=== PATIENT | male | born 1990 | race Caucasian/White ===

== ENCOUNTER 2017-02-01 06:25 | Emergency (ER) | payer SELFPAY ==
[~2017-02-01] VITALS: Ht 172.7 cm; Wt 72.6 kg
[2017-02-01 06:31] VITALS: BP 139/87
--- NOTE | 2017-02-01 06:31 | NUR ---
Patient to bed 11.
--- NOTE | 2017-02-01 06:43 | NUR ---
26Y/M PT. PRESENTS TO ED WITH C/O DIZZY SPELLS WITH TROUBLE WITH RECALLING RECENT EVENTS X 1 YEAR. PT ALSO C/O LEFT SIDED WEAKNESS. DENIES MEDICAL HX, DENIES TRAUMA NOR INJURY. AAO X4, AMBULATORY WITH STEADY GAIT, GCS 15, BOTH PUPILS 3 MM PERRA. RESPIRATIONS ROOM AIR, EVEN AND UNLABORED. C/O LT. SIDE PAIN 12/28. VSS, ER MD MADE AWARE OF PT. STATUS.
--- NOTE | 2017-02-01 07:11 | NUR ---
Jorgito taken to CT via wheelchair.
[2017-02-01 07:16] LABS: BASOPHILS # (AUTO) 0.1 K/uL (0.00-0.22); BASOPHILS % (AUTO) 1.7 % (0.0-2.0); EOSINOPHILS # (AUTO) 0.1 K/uL (0-0.4); HEMATOCRIT 47.3 % (36-52); HEMOGLOBIN 15.7 g/dL (12.0-18.0); LYMPHOCYTES # (AUTO) 0.9 K/uL (2.0-11.5); LYMPHOCYTES % (AUTO) 13.6 % (20.5-51.1); MEAN CORPUSCULAR HEMOGLOBIN 30 pg (27-31); MEAN CORPUSCULAR HGB CONC 33 g/dL (33-37); MEAN CORPUSCULAR VOLUME 90 fL (80-94); MONOCYTES # (AUTO) 0.7 K/uL (0.8-1.0); MONOCYTES % (AUTO) 11.1 % (1.7-9.3); NEUTROPHILS # (AUTO) 4.8 K/uL (1.8-7.7); NEUTROPHILS % (AUTO) 72.6 % (42.2-75.2); PLATELET COUNT (AUTO) 226 K/uL (140-450); RED BLOOD CELL COUNT(AUTO) 5.23 MIL/uL (4.20-6.10); RED CELL DISTRIBUTION WIDTH 12.1 % (11.6-13.7); WHITE BLOOD COUNT (AUTO) 6.6 K/uL (4.8-10.8)
--- NOTE | 2017-02-01 07:24 | NUR ---
REPORT GIVEN TO CAMPOS BRAY. PT. RESTING IN BED, NO S/SX OF DISTRESS AT THIS TIME.
--- NOTE | 2017-02-01 07:24 | NUR ---
PT. BACK FROM CT
--- NOTE | 2017-02-01 07:25 | NUR ---
ASSUMED PATIENT CARE, CONCUR WITH PREVIOUS ASSESSMENTS.
[2017-02-01 07:26] LABS: APPEARANCE,URINE CLEAR (CLEAR); BILIRUBIN,URINE NEGATIVE (NEGATIVE); BLOOD, URINE NEGATIVE (NEGATIVE); COLOR,URINE YELLOW (YELLOW); LEUKOCYTE ESTERASE ,URINE NEGATIVE (NEGATIVE); NITRITE, URINE NEGATIVE (NEGATIVE); UGLUCOSE NEGATIVE (NEGATIVE)
[2017-02-01 07:30] LABS: BARBITURATE, URINE NEG. ng/ml (NEG <=200); BENZODIAZEPINE, URINE NEG. ng/mL (NEG <=200); CANNABINOID, URINE NEG. ng/mL (NEG <=50); COCAINE, URINE NEG. ng/mL (NEG <=300); OPIATE, URINE NEG. ng/mL (NEG <=2000); PHENCYCLIDINE SCREEN,URINE NEG. ng/mL (NEG <=25)
[2017-02-01 07:35] LABS: ALBUMIN 3.8 g/dL (3.4-5.0); ANION GAP 12.8 (8-16); ASPARTATE AMINOTRANSFERASE 17 U/L (15-37); CARBON DIOXIDE 26.3 mmol/L (21-32); CHLORIDE 107 mmol/L (98-107); CREATININE 0.9 mg/dL (0.7-1.3); GFR ARICAN-AMERICAN 131 mL/min (>90); GLUCOSE 109 mg/dL (74-106); POTASSIUM 4.1 mmol/L (3.5-5.1); SODIUM SERUM 142 mmol/L (136-145); TOTAL BILIRUBIN 0.6 mg/dL (0.0-1.0); UREA NITROGEN, BLOOD 10 mg/dL (7-18)
[2017-02-01 08:52] VITALS: BP 122/55
--- NOTE | 2017-02-01 08:53 | NUR ---
DC HOME WITH INSTRUCTIONS, UNDERSTOOD BY PATIENT WELL, VSWNL, NO DISTRESS. DC HOME AMBULATORY ACCOMPANIED BY FRIEND.
== END 2017-02-01 08:53 | disposition home or self-care (01) ==
LOC: MED 06:25
DX: R42 Dizziness and giddiness (principal); M54.2 Cervicalgia
CPT/HCPCS: 36415; 70450; 71010; 80053; 80305; 81003; 82550; 85025; 93005; 99285; G0482

== ENCOUNTER 2017-02-15 15:21 | Inpatient (IN) | payer MEDICAID ==
[~2017-02-15] VITALS: Ht 175.3 cm; Wt 95.3 kg
[2017-02-15 15:54] VITALS: BP 134/95
--- NOTE | 2017-02-15 16:03 | NUR ---
PATIENT PRESENTS TO ED WITH auditory/visual hallucination . PT STATES denies homicidal/suicidal ideations- . DENIES N/V/D; SKIN IS PINK/WARM/DRY; AAOX4 WITH EVEN AND STEADY GAIT; LUNGS CLEAR BL; HR EVEN AND REGULAR; PT DENIES ANY FEVER, CP, SOB, OR COUGH AT THIS TIME; PATIENT STATES PAIN OF 0/10 AT THIS TIME; VSS; PATIENT POSITIONED FOR COMFORT; HOB ELEVATED; BEDRAILS UP X2; BED DOWN. ER MD MADE AWARE OF PT STATUS.
--- NOTE | 2017-02-15 16:05 | NUR ---
DR. VILLATORO EVALUATING PT AT BEDSIDE.
[2017-02-15 16:32] LABS: BASOPHILS # (AUTO) 0.2 K/uL (0.00-0.22); BASOPHILS % (AUTO) 2.3 % (0.0-2.0); EOSINOPHILS # (AUTO) 0.2 K/uL (0-0.4); EOSINOPHILS % (AUTO) 1.6 % (0.0-4.0); HEMATOCRIT 45.6 % (36-52); HEMOGLOBIN 15.3 g/dL (12.0-18.0); LYMPHOCYTES # (AUTO) 1.7 K/uL (2.0-11.5); LYMPHOCYTES % (AUTO) 17.7 % (20.5-51.1); MEAN CORPUSCULAR HEMOGLOBIN 30 pg (27-31); MEAN CORPUSCULAR HGB CONC 34 g/dL (33-37); MEAN CORPUSCULAR VOLUME 90 fL (80-94); MONOCYTES # (AUTO) 0.6 K/uL (0.8-1.0); MONOCYTES % (AUTO) 6.1 % (1.7-9.3); NEUTROPHILS # (AUTO) 6.7 K/uL (1.8-7.7); NEUTROPHILS % (AUTO) 72.3 % (42.2-75.2); PLATELET COUNT (AUTO) 266 K/uL (140-450); RED BLOOD CELL COUNT(AUTO) 5.08 MIL/uL (4.20-6.10); RED CELL DISTRIBUTION WIDTH 12.4 % (11.6-13.7); WHITE BLOOD COUNT (AUTO) 9.4 K/uL (4.8-10.8)
[2017-02-15 16:41] LABS: APPEARANCE,URINE CLEAR (CLEAR); BILIRUBIN,URINE NEGATIVE (NEGATIVE); BLOOD, URINE NEGATIVE (NEGATIVE); COLOR,URINE YELLOW (YELLOW); LEUKOCYTE ESTERASE ,URINE NEGATIVE (NEGATIVE); NITRITE, URINE NEGATIVE (NEGATIVE); PH,URINE 5.5 (5.0-9.0); UGLUCOSE NEGATIVE (NEGATIVE)
[2017-02-15 16:43] LABS: BARBITURATE, URINE NEG. ng/ml (NEG <=200); BENZODIAZEPINE, URINE NEG. ng/mL (NEG <=200); CANNABINOID, URINE NEG. ng/mL (NEG <=50); COCAINE, URINE NEG. ng/mL (NEG <=300); OPIATE, URINE NEG. ng/mL (NEG <=2000); PHENCYCLIDINE SCREEN,URINE NEG. ng/mL (NEG <=25)
--- NOTE | 2017-02-15 16:45 | NUR ---
PT RESTING QUIETLY [place].
[2017-02-15 16:59] LABS: ANION GAP 10.4 (8-16); CARBON DIOXIDE 27.4 mmol/L (21-32); CHLORIDE 104 mmol/L (98-107); GFR ARICAN-AMERICAN 116 mL/min (>90); GLUCOSE 106 mg/dL (74-106); POTASSIUM 3.8 mmol/L (3.5-5.1); SODIUM SERUM 138 mmol/L (136-145); UREA NITROGEN, BLOOD 15 mg/dL (7-18)
[2017-02-15 17:05] LABS: ALBUMIN 3.7 g/dL (3.4-5.0); ASPARTATE AMINOTRANSFERASE 12 U/L (15-37); TOTAL BILIRUBIN 0.3 mg/dL (0.0-1.0)
[2017-02-15 17:12] LABS: ACETAMINOPHEN < 0.5 ug/ml (10-30); SALICYLATE < 2.8 mg/dL (2.8-20.0)
--- NOTE | 2017-02-15 17:15 | NUR ---
FATHER AT BEDSIDE.
--- NOTE | 2017-02-15 17:49 | NUR ---
PT RESTING QUIETLY ON GURNEY. DENIES ANY PAIN OR DISCOMFORT.
--- NOTE | 2017-02-15 18:05 | NUR ---
PT REQUESTING MEAL. DINNER TRAY ORDERED.
--- NOTE | 2017-02-15 18:56 | NUR ---
PER DR. VILLATORO PT IS TO BE ASSESSED BY JERI Shah FOR POSSIBLE 5150 PT FEELS HE IS A DANGER TO OTHERS. DR. VILLATORO STATES PT HAS BEEN MEDICALLY CLEARED.
--- NOTE | 2017-02-15 19:05 | NUR ---
Pt report given to JUAN MACEDO RN. Transfer of care at this time.
--- NOTE | 2017-02-15 19:48 | NUR ---
[place] [employer] AT BEDSIDE
--- NOTE | 2017-02-15 20:33 | NUR ---
TPt report given to VALENTINE GASCA. Transfer of care at this time. Addendum: 02/15/17 at 2035 by MEDDCV Pt report given to VALENTINE GASCA. Transfer of care at this time.
--- NOTE | 2017-02-15 20:34 | NUR ---
PT MOVED TO BED 6
--- NOTE | 2017-02-15 20:50 | NUR ---
PT RESTING IN BED QUIETLY, WILL CONTINUE TO MONITOR.
--- NOTE | 2017-02-15 22:03 | NUR ---
PT IN BED RESTING, NO NEW NEEDS AT THIS TIME, WILL CONTINUE TO MONITOR.
[2017-02-15] MEDS: NACL 0.9% 1,000 ML IV SCH (22:24)
[2017-02-15] MEDS ORDERED: HYDROcodone/APAP 7.5/325 MG 1 TAB PO PRN (22:25)
[2017-02-15] MEDS ORDERED: ACETAMINOPHEN 325 MG TAB PO PRN (22:25)
[2017-02-15] MEDS ORDERED: ONDANSETRON 4 MG/2 ML VIAL IM/IVP PRN (22:25)
[2017-02-15] MEDS ORDERED: DOCUSATE SODIUM 100 MG GELCAP PO PRN (22:25)
[2017-02-15] MEDS ORDERED: MORPHINE SULFATE 2 MG/ML SYR IVP PRN (22:25)
[2017-02-15 23:10] LABS: CHOL/HDL RATIO 3.6 (1-4.5); FREE T4 (FREE THYROXINE) 0.97 ng/dL (0.76-1.46); MAGNESIUM 2.1 mg/dL (1.8-2.4); THYROID STIMULATING HORMONE 1.65 uIU/mL (0.34-3.74)
--- NOTE | 2017-02-15 23:10 | NUR ---
Patient will be admitted to care of dr whitaker. Admited to tele. Will go to room 109b. Belongings list completed. Report to CAMPOS CYR RN.
[2017-02-15 23:15] VITALS: BP 137/86
--- NOTE | 2017-02-15 23:15 | NUR ---
Admitted from ER TO TELEMETRY UNIT, with chief complaint of HEARING MANY VOICES THAT TELLS HIM LOTS OF THINGS, 5150 ON HOLD, 26 y/o ,Male, Cooperative, AWAKE, A/OX4. STATED HE HAD USE METHAMPHETAMINES BUT STOPPED 4 MONTHS AGO. RESPIRATION EVEN AND UNLABORED, NOTED TATTOOS IN THE CHEST AND BILATERAL UPPER ARMS, SKIN INTACT. oriented to call light, bed, phone,television, bathroom, smoking policy,visiting hours, procedures, ID bracelet on. Belongings list checked.
[2017-02-15 23:30] VITALS: BP 137/86
--- NOTE | 2017-02-16 01:00 | NUR ---
ATE 100% OF MEAL TRAY.
[2017-02-16] MEDS: NACL 0.9% 1,000 ML IV SCH ×2 (01:12→14:46)
[2017-02-16] MEDS ORDERED: ZOLPIDEM 10 MG TAB PO ONE (01:55)
[2017-02-16] MEDS ORDERED: SERTRALINE 50 MG TAB PO SCH ×2 (01:55→21:00)
[2017-02-16] MEDS ORDERED: QUEtiapine FUMARATE 25 MG TAB PO ONE (01:55)
--- NOTE | 2017-02-16 02:00 | NUR ---
RESIDENT DR. ORTIZ CAME, EXAMINED AND INTERVIEWED PATIENT.
[2017-02-16] MEDS ORDERED: ONDANSETRON 4 MG/2 ML VIAL IVP PRN (02:15)
--- NOTE | 2017-02-16 02:49 | NUR ---
ORDERED PO MEDICATIONS GIVEN.
[2017-02-16 04:00] VITALS: BP_SYST 100; BP_SYST 125; BP_DIAS 61; BP_DIAS 65
--- NOTE | 2017-02-16 05:08 | NUR ---
WENT TO DO HIS EKG BUT PATIENT WAS ASLEEP AND WOULDN'T FOLLOW DIRECTIONS. WILL NOTIFY NEXT SHIFT TO PERFORM EKG WHEN HE BECOMES ALERT.
--- NOTE | 2017-02-16 06:40 | NUR ---
TAKEN TO RADIOLOGY VIA W/C FOR CT OF THE HEAD ACCOMPANIED BY TECH.
[2017-02-16 07:00] LABS: BASOPHILS # (AUTO) 0.1 K/uL (0.00-0.22); BASOPHILS % (AUTO) 1.7 % (0.0-2.0); EOSINOPHILS # (AUTO) 0.1 K/uL (0-0.4); EOSINOPHILS % (AUTO) 1.3 % (0.0-4.0); HEMATOCRIT 44.7 % (36-52); HEMOGLOBIN 15.1 g/dL (12.0-18.0); LYMPHOCYTES # (AUTO) 1.8 K/uL (2.0-11.5); LYMPHOCYTES % (AUTO) 20.3 % (20.5-51.1); MEAN CORPUSCULAR HEMOGLOBIN 31 pg (27-31); MEAN CORPUSCULAR HGB CONC 34 g/dL (33-37); MEAN CORPUSCULAR VOLUME 90 fL (80-94); MONOCYTES # (AUTO) 0.7 K/uL (0.8-1.0); MONOCYTES % (AUTO) 8.3 % (1.7-9.3); NEUTROPHILS # (AUTO) 6.1 K/uL (1.8-7.7); NEUTROPHILS % (AUTO) 68.4 % (42.2-75.2); PLATELET COUNT (AUTO) 267 K/uL (140-450); RED BLOOD CELL COUNT(AUTO) 4.95 MIL/uL (4.20-6.10); RED CELL DISTRIBUTION WIDTH 12.7 % (11.6-13.7); WHITE BLOOD COUNT (AUTO) 8.8 K/uL (4.8-10.8)
--- NOTE | 2017-02-16 07:00 | NUR ---
BACK FROM RADIOLOGY. WENT BACK TO SLEEP AT ONCE.
[2017-02-16 07:04] LABS: ANION GAP 12.4 (8-16); CARBON DIOXIDE 26.6 mmol/L (21-32); CREATININE 0.9 mg/dL (0.7-1.3)
[2017-02-16 07:15] LABS: MAGNESIUM 2.1 mg/dL (1.8-2.4); PHOSPHORUS 4.5 mg/dL (2.5-4.9)
--- NOTE | 2017-02-16 07:20 | NUR ---
SAFETY MAINTAINED DURING SHIFT. NEW1:1 SITTER MONITORING PATIENT AT THE BEDSIDE. CONDITION REMAIN STABLE. ENDORSED TO CAMPOS HERNANDEZ FOR CONTINUITY OF CARE.
--- NOTE | 2017-02-16 07:21 | NUR ---
RECEIVED REPORT FROM WIND TUNNEL ENGINEER NURSE. PATIENT IS SLEEPING. AROUSABLE BY VOICE. PATIENT IN STABLE CONDITION. NO DISTRESS NOTED. RESPIRATIONS EVEN, UNLABORED, ON ROOM AIR. IV SITE INTACT, PATENT, AND INFUSING IVF ORDERS. AAOX4, CALM, COOPERATIVE, SKIN COLOR APPROPRIATE TO ETHNICITY, WARM TO TOUCH. DENIES ANY PAIN. DENIES ANY AUDITORY HALLUCINATIONS AT THIS TIME. LUNGS CTA ON ALL LOBES. ABDOMEN SOFT, NON-DISTENDED. SKIN IS INTACT. REVIEWED PLAN OF CARE WITH PATIENT. PATIENT VERBALIZED UNDERSTANDING. SAFETY MEASURES IN PLACE, 1:1 SITTER AT BEDSIDE. WILL CONTINUE TO MONITOR.
[2017-02-16 08:00] VITALS: BP 122/81
--- NOTE | 2017-02-16 08:32 | NUR ---
FAXED INFORMATION TO [facility] [phone] PHONE [phone]
--- NOTE | 2017-02-16 09:09 | NUR ---
PATIENT HAS BEEN SCREENED AND CATEGORIZED LOW NUTRITION RISK. PATIENT WILL BE SEEN WITHIN 7 DAYS OF ADMISSION. 02/22/[address]
--- NOTE | 2017-02-16 09:30 | NUR ---
PATIENT LYING IN BED SLEEPING. NO DISTRESS NOTED. DENIES ANY PAIN. DENIES ANY HALLUCINATIONS. NO THOUGHTS OF HARMING SELF. DR. GUDINO SAW PATIENT AND CLEARED HIM OF 5150. SCHEDULED MEDICATIONS DUE. SAFETY MEASURES IN PLACE, CALL LIGHT WITHIN REACH. WILL CONTINUE TO MONITOR.
[2017-02-16] MEDS: QUEtiapine FUMARATE 25 MG TAB PO SCH ×3 (09:42→17:16)
[2017-02-16] MEDS: DOCUSATE SODIUM 100 MG GELCAP PO SCH ×2 (09:42→20:01)
--- NOTE | 2017-02-16 10:40 | NUR ---
PATIENT SITTING IN BED COMFORTABLY. NO DISTRESS NOTED. DENIES ANY PAIN. NO THOUGHTS OF HARMING SELF. CONDITION UNCHANGED. SAFETY MEASURES IN PLACE, CALL LIGHT WITHIN REACH. WILL CONTINUE TO MONITOR.
[2017-02-16 12:00] VITALS: BP 130/74
--- NOTE | 2017-02-16 13:05 | NUR ---
DR. RUBIN AT BEDSIDE REVIEWING PLAN OF CARE WITH PATIENT AND MOTHER AT BEDSIDE. PATIENT/MOTHER VERBALIZED UNDERSTANDING AND ALL QUESTIONS ANSWERED BY MD. SCHEDULED MEDICATIONS DUE GIVEN. PATIENT IS SITTING IN BED COMFORTABLY. NO DISTRESS NOTED, DENIES ANY PAIN. NO THOUGHTS OF HARMING SELF OR ANY AUDITORY HALLUCINATIONS. SAFETY MEASURES IN PLACE, CALL LIGHT WITHIN REACH. WILL CONTINUE TO MONITOR.
--- NOTE | 2017-02-16 13:40 | NUR ---
GAVE PATIENT/FAMILY SUBSTANCE ABUSE AND OUTPATIENT PSYCHIATRIC AND PSYCHIATRIC RESOURCE PACKETS. PROVIDED EDUCATION/TEACHING ON THE SUBSTANCE ABUSE AND PSYCHIATRIC PACKETS. EXPLAINED TO PATIENT/FAMILY THAT THEY CAN CHOOSE AND CALL ANY OF THE FACILITIES/RESOURCE THAT IS LISTED ON THE PACKETS THAT IS NEAREST TO THEIR HOME. ANSWERED ALL QUESTIONS FROM PATIENT/FAMILY. PATIENT/FAMILY VERBALIZED COMPLETE UNDERSTANDING. WILL CONTINUE TO MONITOR.
--- NOTE | 2017-02-16 14:49 | NUR ---
PATIENT SLEEPING, AROUSABLE BY VOICE. NO DISTRESS NOTED. DENIES ANY PAIN. CONDITION UNCHANGED. WILL CONTINUE TO MONITOR.
[2017-02-16 16:00] VITALS: BP 117/63
--- NOTE | 2017-02-16 17:19 | NUR ---
PATIENT SLEEPING IN BED, AROUSABLE BY VOICE. NO DISTRESS NOTED. DENIES ANY PAIN. CONDITION UNCHANGED. SCHEDULED MEDICATIONS DUE GIVEN. SAFETY MEASURES IN PLACE, CALL LIGHT WITHIN REACH. WILL CONTINUE TO MONITOR.
--- NOTE | 2017-02-16 18:40 | NUR ---
PATIENT LYING IN BED COMFORTABLY. NO DISTRESS NOTED. DENIES ANY PAIN. CONDITION UNCHANGED. SAFETY MEASURES IN PLACE, CALL LIGHT WITHIN REACH. WILL CONTINUE TO MONITOR,.
--- NOTE | 2017-02-16 19:10 | NUR ---
GAVE REPORT TO DIMENSION STONE QUARRY SUPERVISOR NURSE FOR CONTINUITY OF CARE. PATIENT IN STABLE CONDITION.
--- NOTE | 2017-02-16 19:16 | NUR ---
PATIENT REPORT RECEIVED FROM MORNING NURSE. PATIENT IS RESTING COMFORTABLY IN BED. NO SIGNS AND SYMPTOMS OF DISTRESS NOTED. IV SITE NOTED LEFT HAND, WITH NS RUNNING AT 60ML/HR. SITE IN ASYMPTOMATIC, INTACT AND PATIENT. BED IN LOWEST POSITION, SIDE RAILS UP. WILL CONTINUE TO MONITOR.
[2017-02-16 20:00] VITALS: BP 123/68
[2017-02-17] VITALS: BP 120/75
--- NOTE | 2017-02-17 | NUR ---
CHECKED ON PATIENT, PATIENT IS ASLEEP. NO SIGNS AND SYMPTOMS OF DISTRESS NOTED. BED IN LOWEST POSITION, SIDE RAILS UP. WILL CONTINUE TO MONITOR.
[2017-02-17 04:00] VITALS: BP 112/61
[2017-02-17 06:29] LABS: BASOPHILS # (AUTO) 0.2 K/uL (0.00-0.22); BASOPHILS % (AUTO) 2.2 % (0.0-2.0); EOSINOPHILS # (AUTO) 0.1 K/uL (0-0.4); EOSINOPHILS % (AUTO) 0.9 % (0.0-4.0); HEMATOCRIT 43.2 % (36-52); HEMOGLOBIN 14.8 g/dL (12.0-18.0); LYMPHOCYTES # (AUTO) 1.2 K/uL (2.0-11.5); LYMPHOCYTES % (AUTO) 13.2 % (20.5-51.1); MEAN CORPUSCULAR HEMOGLOBIN 31 pg (27-31); MEAN CORPUSCULAR HGB CONC 34 g/dL (33-37); MEAN CORPUSCULAR VOLUME 89 fL (80-94); MONOCYTES # (AUTO) 0.8 K/uL (0.8-1.0); MONOCYTES % (AUTO) 8.7 % (1.7-9.3); PLATELET COUNT (AUTO) 238 K/uL (140-450); RED BLOOD CELL COUNT(AUTO) 4.84 MIL/uL (4.20-6.10); RED CELL DISTRIBUTION WIDTH 12.3 % (11.6-13.7); WHITE BLOOD COUNT (AUTO) 9.3 K/uL (4.8-10.8)
[2017-02-17 06:33] LABS: ANION GAP 10.8 (8-16); CARBON DIOXIDE 27.2 mmol/L (21-32); CREATININE 0.9 mg/dL (0.7-1.3)
--- NOTE | 2017-02-17 07:04 | NUR ---
PATIENT REPORT GIVEN TO MORNING NURSE AT BEDSIDE. PATIENT IS IN STABLE CONDITION.
--- NOTE | 2017-02-17 07:10 | NUR ---
RECEIVED PT REPORT AT BEDSIDE FROM NIGHT NURSE. PT IS AAOX4 AND DENIES PAIN. PT SHOWS NO S/S OF ACUTE DISTRESS ON ROOM AIR. ON TELE MONITOR. PT'S SKIN IS INTACT. IV NOTED ON THE RT H WITH IVF'S INFUSING WELL. PT DENIES DYSURIA AND LOWER BACK TENDERNESS. PT WAS EXPLAINED POC FOR TODAY AND VERBALIZED UNDERSTANDING. PT AMB TO RR WITHOUT ANY DIFFICULTY AND HAD A STEADY GAIT. THE BED IS IN LOW POSITION WITH CALL LIGHT WITHIN REACH. WILL CONTINUE TO MONITOR.
[2017-02-17 07:32] LABS: MAGNESIUM 2.1 mg/dL (1.8-2.4); PHOSPHORUS 3.8 mg/dL (2.5-4.9)
[2017-02-17 08:00] VITALS: BP 124/74
[2017-02-17] MEDS: DOCUSATE SODIUM 100 MG GELCAP PO SCH (08:15)
[2017-02-17] MEDS: NACL 0.9% 1,000 ML IV SCH (08:15)
[2017-02-17] MEDS: QUEtiapine FUMARATE 25 MG TAB PO SCH ×2 (08:15→13:11)
--- NOTE | 2017-02-17 08:20 | NUR ---
ADMINISTERED SCHEDULED MEDICATIONS. PT TOLERATED WELL. PT DENIES PAIN. BED IN LOW POSITION.
--- NOTE | 2017-02-17 10:45 | NUR ---
PT SHOWS NO S/S OF ACUTE DISTRESS ON ROOM AIR. PT RESTING IN BED.
[2017-02-17 12:00] VITALS: BP 131/80
[2017-02-17 12:19] LABS: T4 (THYROXINE) 6.4 ug/dL (4.5-12.0)
--- NOTE | 2017-02-17 12:30 | NUR ---
PT HAS MOTHER AT BEDSIDE AND STATED, "VOY ESTAR AQUI [facility]STA L[place]AN[place] Y MEDIA." MOTHER WAS ASKED IF SHE COULD TAKE PT TO [facility] BEFORE SHE LEAVES AT 1330. PT'S MOTHER STATED SHE CAN.
--- NOTE | 2017-02-17 12:45 | NUR ---
PT IS BEING SEEN BY DR RUBIN
[2017-02-17] MEDS ORDERED: SERT-146 PO (12:46)
[2017-02-17] MEDS ORDERED: QUET100T PO (12:46)
--- NOTE | 2017-02-17 13:30 | NUR ---
PT'S MOTHER IS NOT AT BEDSIDE. PT STATED," I CONTACTED SOMEONE FROM [employer] AND THEY WILL BE HERE TO PICK ME UP SOON." PT WAS GIVEN DISCHARGE INSTRUCTIONS, ALL PAPERWORK SIGNED. ALL BELONGINGS IN PT'S POSSESSION. IV WAS DISCONTINUED WITH CANNULA INTACT. WRISTBANDS AND TELE BOX REMOVED. PT IS WAITING FOR RIDE TO PLACE OF RESIDENCE.
--- NOTE | 2017-02-17 13:45 | NUR ---
PT LEFT UNIT WITH STEADY GAIT WITH ELTINA HEADER OPERATOR PRESENT AT SIDE. PT LEFT IN STABLE CONDITION.
[2017-02-17] MEDS ORDERED: INFLUENZA VIRUS VACCINE QUAD 0.5 ML SYR IMVAC SCH (21:00)
== END 2017-02-17 13:45 | disposition home or self-care (01) | DRG 812 ==
LOC: MED 15:21 → MTU 22:27
PROVIDERS: ADMIT Family Medicine; ATTEND Family Medicine
DX: T43.621A Poisoning by amphetamines, accidental (unintentional), initial encounter (principal); G92 Toxic encephalopathy; F25.1 Schizoaffective disorder, depressive type; F32.9 Major depressive disorder, single episode, unspecified; F15.10 Other stimulant abuse, uncomplicated; E66.9 Obesity, unspecified; Z68.31 Body mass index [BMI] 31.0-31.9, adult; Z87.891 Personal history of nicotine dependence; Z82.49 Family history of ischemic heart disease and other diseases of the circulatory system; Y92.89 Other specified places as the place of occurrence of the external cause
CPT/HCPCS: 36415; 70450; 71010; 80048; 80053; 80305; 81003; 82140; 82150; 83036; 83690; 83735; 83880; 84100; 84436; 84439; 84443; 84479; 84484; 85025; 85610; 85730; 87081; 93005; 99285; G0480; G0482; J7030; Q0092

== ENCOUNTER 2019-11-06 19:27 | Emergency (ER) | payer MEDICAID, OTHER ==
[~2019-11-06] VITALS: Ht 172.7 cm; Wt 86.2 kg
[~2019-11-06 19:27] MED LIST: QUET100T PO; SERT-146 PO
[2019-11-06 19:43] VITALS: BP 149/98
--- NOTE | 2019-11-06 19:47 | NUR ---
PT WAITING FOR ASSESSMENT IN OF TENT.
--- NOTE | 2019-11-06 20:15 | NUR ---
ASSESSED BY KIRSTEN GARCÍA
--- NOTE | 2019-11-06 20:20 | NUR ---
ASSESSED, TREATED, AND D/C BY KIRSTEN DIGGS. NO NURSING INTERVENTION NEEDED.
[2019-11-06 20:30] VITALS: BP 149/98
--- NOTE | 2019-11-06 20:30 | NUR ---
Patient discharged with v/s stable. Written and verbal after care instructions given and explained. Patient alert, oriented and verbalized understanding of instructions. Ambulatory with steady gait. All questions addressed prior to discharge. ID band removed. Patient advised to follow up with PMD. Rx of IODIUM given. Patient educated on indication of medication including possible reaction and side effects. Opportunity to ask questions provided and answered. PT LEFT WITHOUT SIGNING D/C PAPERWORK AND D/C PAPERS.
== END 2019-11-06 20:30 | disposition home or self-care (01) ==
LOC: MED 19:27
DX: B34.9 Viral infection, unspecified (principal); F17.210 Nicotine dependence, cigarettes, uncomplicated; F15.10 Other stimulant abuse, uncomplicated; Z02.89 Encounter for other administrative examinations; Z79.899 Other long term (current) drug therapy
CPT/HCPCS: 99282